=== PATIENT | male | born 1955 | race Caucasian/White ===

== ENCOUNTER 2022-07-18 00:53 | Outpatient (CLI) | payer MEDICARE | END 2022-07-18 00:54 | disposition left against medical advice (07) | LOC: EMS 00:53 | DX: G47.00 Insomnia, unspecified (principal); F41.9 Anxiety disorder, unspecified ==

== ENCOUNTER 2022-09-08 03:22 | Outpatient (CLI) | payer MEDICARE | END 2022-09-08 03:23 | disposition EMS.NT | LOC: EMS 03:22 | DX: M54.50 Low back pain, unspecified (principal) ==

== ENCOUNTER 2022-09-22 16:16 | Emergency (ER) | payer MEDICARE ==
[2022-09-22] MEDS ORDERED: SODIUM CHLORIDE 0.9% 1,000 ML IV STA (16:53)
[2022-09-22 17:05] LABS: BASOPHILS # (AUTO) 0.1 10^3/uL (0.0-0.1); BASOPHILS % (AUTO) 0.7 %; EOSINOPHILS # (AUTO) 0.1 10^3/uL (0.0-0.7); EOSINOPHILS % (AUTO) 1.2 %; HCT - HEMATOCRIT 38.9 % (42.0-52.0); HGB - HEMOGLOBIN 12.4 g/dL (14.0-18.0); LYMPHOCYTES # (AUTO) 1.2 10^3/uL (1.5-3.5); LYMPHOCYTES % (AUTO) 12.9 %; MEAN CORPUSCULAR HEMOGLOBIN 27.9 pg (27.0-31.0); MEAN CORPUSCULAR HGB CONC 31.9 g/dL (32.0-36.0); MEAN CORPUSCULAR VOLUME 87.6 fL (80.0-94.0); MEAN PLATELET VOLUME 8.5 fL (7.4-11.4); MONOCYTES # (AUTO) 0.8 10^3/uL (0.0-1.0); MONOCYTES % (AUTO) 8.4 %; NEUTROPHILS % (AUTO) 76.4 %; PLT - PLATELET COUNT 376 10^3/uL (130-450); RED BLOOD COUNT 4.44 10^6/uL (4.70-6.10); RED CELL DISTRIBUTION WIDTH 12.7 % (12.0-15.0); WHITE BLOOD COUNT 9.2 x10^3/uL (4.8-10.8)
--- NOTE | 2022-09-22 17:13 | XRAY Report ---
PROCEDURE: Chest 1 View X-Ray INDICATIONS: chest pain TECHNIQUE: One view of the chest was acquired. COMPARISON: None FINDINGS: Surgical changes and devices: None. Lungs and pleura: No pleural effusions or pneumothorax. Lungs are clear. Mediastinum: Mediastinal contours appear normal. Heart size is normal. Bones and chest wall: No suspicious bony lesions. Overlying soft tissues appear unremarkable. IMPRESSION: No acute cardiopulmonary pathology. Reviewed by: Terrence Pillai MD on 09/22/2022 5:12 PM PDT Approved by: Terrence Pillai MD on 09/22/2022 5:12 PM PDT Station ID: [id number]
[2022-09-22 17:17] LABS: ALBUMIN 3.8 g/dL (3.2-5.5); BILIRUBIN,TOTAL 0.5 mg/dL (0.2-1.0); CALCIUM 9.5 mg/dL (8.5-10.3); CREATININE 0.7 mg/dL (0.6-1.2); MAGNESIUM 2.1 mg/dL (1.7-2.8); POTASSIUM 3.4 mmol/L (3.5-5.0); TOTAL PROTEIN 7.5 g/dL (6.7-8.2)
--- NOTE | 2022-09-22 18:06 | ED Physician Documentation ---
PD HPI FOCAL NEURO - Stated complaint Stated Complaint: R LEG SWELLING - Chief complaint Chief Complaint: Neuro - History obtained from History obtained from: Patient, Family - History of Present Illness Timing - onset: How many weeks ago (2 weeks of gradual onset general weakness and some confusion (forgetful and incomplete sentence/thoughts at times per report). General weakness (unable to push himself up from chair position for example).) Timing - duration: Weeks (2 weeks or more) Timing - details: Gradual onset Severity of deficit: Moderate Weakness: Other (generalized). No: Face Numbness: No: Face, Arm, Leg Associated symptoms: Other (less appetite for 2 weeks. Right leg swelling for the past several days. No noted injury.). No: Headache, Nausea / vomiting Baseline status: positive: Walker (for balance due to cerebellar ataxia.) Similar symptoms before: Has not had sx before Recently seen: Not recently seen Review of Systems Constitutional: reports: Fatigue. denies: Fever, Myalgias Nose: denies: Rhinorrhea / runny nose, Congestion Throat: denies: Sore throat Cardiac: denies: Chest pain / pressure Respiratory: denies: Dyspnea GI: reports: Other (less appetite). denies: Abdominal Pain, Vomiting, Diarrhea, Bloody / black stool : denies: Dysuria, Incontinent Skin: denies: Rash, Lesions Musculoskeletal: reports: Extremity swelling (right lower leg) Neurologic: reports: Generalized weakness. 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.) Endocrine/Autoimmune: None Psych: Anxiety - Present Medications Home Medications: Ambulatory Orders Medication Instructions Recorded Confirmed clonazePAM [Clonazepam] 0.5 mg PO DAILY 07/13/22 07/13/22 hydroCHLOROthiazide [Hydrodiuril] 25 mg PO DAILY 07/13/22 07/13/22 - Allergies Allergies/Adverse Reactions: Allergies Allergy/AdvReac Type Severity Reaction Status Date / Time No Known Drug Allergies Allergy Verified 07/13/22 04:41 PD ED PE NORMAL - Vitals Vital signs reviewed: Yes - General General: Alert and oriented X 3, Well developed/nourished, Other (some wobbling of movement even sitting in cart (baseline per patient) due to his ataxia. ) - HEENT HEENT: Atraumatic, Pharynx benign. No: Moist mucous membranes - Neck Neck: Supple, no meningeal sign, No adenopathy, No bruit - Cardiac Cardiac: RRR, No murmur - Respiratory Respiratory: Clear bilaterally - Abdomen Abdomen: Soft, Non tender, Non distended - Derm Derm: Normal color, Warm and dry - Extremities Extremities: No tenderness to palpate, Other (mild edema right lower leg below knee. No skin sores. ) - Neuro Neuro: Alert and oriented X 3, No motor deficit, No sensory deficit Results - Vitals Vitals: Vital Signs - 24 hr 09/22/22 09/22/22 16:26 17:15 Temperature 37.2 C Heart Rate 91 82 Respiratory 18 15 Rate Blood Pressure 170/113 H 136/99 H O2 Saturation 99 99 Oxygen O2 Source Room air - Labs Labs: Laboratory Tests 09/22/22 09/22/22 16:57 16:57 WBC 9.2 RBC 4.44 L Hgb 12.4 L Hct 38.9 L MCV 87.6 MCH 27.9 MCHC 31.9 L RDW 12.7 Plt Count 376 MPV 8.5 Neut # (Auto) 7.0 H Lymph # (Auto) 1.2 L [place] # (Auto) 0.8 Eos # (Auto) 0.1 Baso # (Auto) 0.1 Absolute Nucleated RBC 0.00 Nucleated RBC % 0.0 Sodium 138 Potassium 3.4 L Chloride 100 L Carbon Dioxide 28 Anion Gap 10.0 BUN 18 Creatinine 0.7 Estimated GFR (MDRD) 114 Glucose 103 H Calcium 9.5 Magnesium 2.1 Total Bilirubin 0.5 AST 25 ALT 24 Alkaline Phosphatase 91 Total Protein 7.5 Albumin 3.8 Globulin 3.7 Albumin/Globulin Ratio 1.0 Lipase 31 - Rads (name of study) chest xray Radiology: Prelim report reviewed (no acute process), See rad report PD MEDICAL DECISION MAKING - ED course Complexity details: considered differential (General weakness, less appetite, not feeling well for couple of weeks. We will look for signs of infection to include chest x-ray, urine, viral panel. Also to evaluate electrolytes and blood count. Head CT to eval bleed/swelling/etc. Right leg swelling and will get ultrasound to evaluate for DVT.), d/w patient, d/w family
--- NOTE | 2022-09-22 18:13 | CT Report ---
PROCEDURE: HEAD WO INDICATIONS: confusion for days TECHNIQUE: Noncontrast 4.5 mm thick angled axial sections acquired from the foramen magnum to the vertex. For r adiation dose reduction, the following was used: automated exposure control, adjustment of mA and/or kV according to patient size. COMPARISON: None. FINDINGS: Image quality: Excellent. CSF spaces: Basal cisterns are patent. No extra-axial fluid collections. Ventricles are normal in size and shape. Brain: No midline shift. No intracranial masses or hemorrhage. Kim-white matter interface is norm al. Note is made of disproportionate generalized atrophy of the cerebellum. Skull and face: Calvarium and visualized facial bones are intact, without suspicious lesions. Sinuses: Visualized sinuses and mastoids are clear. IMPRESSION: No acute abnormality is seen to explain the patient's presenting history. There is disproportionate generalized atrophy of the cerebellum compared to the degree of atrophy of the cerebral hemispheres. Reviewed by: Samir Rosales MD on 09/22/2022 5:12 PM AKDT Approved by: Samir Rosales MD on 09/22/2022 5:12 PM AKDT Station ID: [id number]
[2022-09-22 18:20] LABS: B. PARAPERTUSSIS- RESP PCR PAN NOT DETECTED; B. PERTUSSIS- RESP PCR PANEL NOT DETECTED; C. PNEUMONIAE- RESP PCR PANEL NOT DETECTED; CORONAVIRUS 229E-RESP PCR NOT DETECTED; CORONAVIRUS HKU1-RESP PCR NOT DETECTED; CORONAVIRUS NL63-RESP PCR NOT DETECTED; CORONAVIRUS OC43-RESP PCR NOT DETECTED; HUMAN METAPNEUMOVIRUS NOT DETECTED; INFLUENZA A- RESP PCR PANEL NOT DETECTED; INFLUENZA B - RESP PCR PANEL NOT DETECTED; M. PNEUMONIAE- RESP PCR PANEL NOT DETECTED; PARAINFLUENZA VIRUS 1 NOT DETECTED; PARAINFLUENZA VIRUS 2 NOT DETECTED; PARAINFLUENZA VIRUS 3 NOT DETECTED; PARAINFLUENZA VIRUS 4 NOT DETECTED; RHINOVIRUS/ENTEROVIRUS NOT DETECTED; RSV- RESP PCR PANEL NOT DETECTED; SARS-CoV-2 -RESP PCR PANEL NOT DETECTED
--- NOTE | 2022-09-22 19:01 | ED Physician Documentation ---
ED Addendum - Addendum Addendum: 09/22/22 19:[address] Kamara. Briefly this is a 66-year-old gentleman with multiple complaints, at signout work-up had been completed including a CT of the head showing cerebral atrophy cerebellar atrophy, clear chest x-ray, normal DVT ultrasound of the right leg, and basically unremarkable lab work. Patient was reexamined at bedside. His also at the bedside. We discussed his main complaints which include sleep and appetite. I offered to trial some Risperdal pending primary care follow-up for same and he seemed agreeable. He started to ask for narcotics for his chronic back pain which was politely declined especially since he also wanted a refill of his clonazepam. Disposition: Discharged home with Condition: Stable Diagnosis: 1. Cerebellar ataxia 2. Insomnia and 3. Right leg swelling 4. Poor appetite
--- NOTE | 2022-09-22 19:08 | Ultrasound Report ---
PROCEDURE: Duplex Ext Veins Right INDICATIONS: right leg swelling TECHNIQUE: Real-time imaging, as well as color and pulse Doppler interrogation, were performed of the lower extr emity deep veins from the inguinal ligament to the popliteal fossa. COMPARISON: None. FINDINGS: The deep veins are normally compressible, and free of intraluminal thrombus. Color and pu lse Doppler demonstrate normal phasic intraluminal flow. There is normal augmentation response to di stal compression maneuver. Small fluid collection in anterior knee soft tissue is seen measures 4.5 x 0.7 x 3.9 cm in size. IMPRESSION: 1. No evidence of DVT in visualized right lower extremity veins. 2. Fluid collection along anterior aspect of right knee which may represent prepatellar bursal fluid. Reviewed by: Terrence Pillai MD on 09/22/2022 7:07 PM PDT Approved by: Terrence Pillai MD on 09/22/2022 7:07 PM PDT Station ID: [id number]
[2022-09-22 19:11] VITALS: BP 133/65
== END 2022-09-22 19:27 | disposition home or self-care (01) ==
LOC: ED 16:16
DX: G11.9 Hereditary ataxia, unspecified (principal); G47.00 Insomnia, unspecified; R60.0 Localized edema; R63.0 Anorexia; Z20.822 Contact with and (suspected) exposure to COVID-19
CPT/HCPCS: 36415; 80053; 83690; 83735; 85025; 87633; 96360; 99283

== ENCOUNTER → 2022-09-22 | Outpatient (CLI) | payer MEDICARE | END | disposition left against medical advice (07) | LOC: EMS 08:50 | DX: Z04.6 Encounter for general psychiatric examination, requested by authority (principal) ==

== ENCOUNTER 2022-10-03 12:20 | Outpatient (CLI) | payer MEDICARE | END 2022-10-03 12:21 | disposition left against medical advice (07) | LOC: EMS 12:20 | DX: T69.9XXA Effect of reduced temperature, unspecified, initial encounter (principal); X31.XXXA Exposure to excessive natural cold, initial encounter ==

== ENCOUNTER 2023-03-28 20:51 | Outpatient (CLI) | payer MEDICARE | END 2023-03-28 23:59 | disposition EMS.NT | LOC: EMS 20:51 | DX: R47.02 Dysphasia (principal) ==

== ENCOUNTER 2023-04-02 16:29 | Outpatient (CLI) | payer MEDICARE | END 2023-04-02 16:30 | disposition EMS.NT | LOC: EMS 16:29 | DX: Z03.89 Encounter for observation for other suspected diseases and conditions ruled out (principal) ==

== ENCOUNTER 2023-04-22 08:11 | Outpatient (CLI) | payer MEDICARE | END 2023-04-22 08:12 | disposition EMS.NT | LOC: EMS 08:11 | DX: Z03.89 Encounter for observation for other suspected diseases and conditions ruled out (principal) ==

== ENCOUNTER 2023-05-11 18:30 | Outpatient (CLI) | payer MEDICARE | END 2023-05-11 23:59 | disposition EMS.NT | LOC: EMS 18:30 | DX: Z03.89 Encounter for observation for other suspected diseases and conditions ruled out (principal) ==

== ENCOUNTER 2023-05-12 08:54 | Outpatient (CLI) | payer MEDICARE | END 2023-05-12 23:59 | disposition EMS.NT | LOC: EMS 08:54 | DX: Z03.89 Encounter for observation for other suspected diseases and conditions ruled out (principal) ==

== ENCOUNTER 2023-05-15 01:19 | Outpatient (CLI) | payer MEDICARE | END 2023-05-15 01:20 | disposition EMS.NT | LOC: EMS 01:19 | DX: Z03.89 Encounter for observation for other suspected diseases and conditions ruled out (principal) ==

== ENCOUNTER 2023-05-21 15:57 | Outpatient (CLI) | payer MEDICARE | END 2023-05-21 15:58 | disposition hospice, home (50) | LOC: EMS 15:57 | PROVIDERS: ATTEND Family Medicine | DX: G11.9 Hereditary ataxia, unspecified (principal); Z74.01 Bed confinement status | CPT/HCPCS: A0425; A0428 ==